=== PATIENT | female | born 1985 | race Caucasian/White ===

== ENCOUNTER 2025-07-07 11:26 | Emergency (ER) | payer OTHER, SELFPAY ==
--- NOTE | ~2025-07-07 | US_ITS ---
CLINICAL HISTORY: 20 wks preg, slip and fall, L abd pain Ultrasound OB. COMPARISON: None provided. Technique: Real time transabdominal sonographic imaging, including color-flow imaging, was performed by the hearing screen coordinator. Multiple labor union business representative static images were saved for review. FINDINGS: Estimated gestational age (EGA) by LMP: 20 weeks 4 days Estimated date of delivery (ANDREEA) by LMP: 11/20/2025 Biometrics were not performed. heart rate (FHR): 144 bpm Single live intrauterine gestation in transverse position. Anterior placenta. No evidence of placenta previa or abruption. Closed cervix with length of 3.7 cm. Amniotic fluid largest pocket: 5.9 cm, normal. Right ovary appears normal and measures 2.5 x 1.6 x 2.1 cm. Left ovary appears normal and measures 2.2 x 1.6 x 1.5 cm. IMPRESSION: 1. Single living intrauterine gestation estimated at 20 weeks 4 days by LMP. 2. Placenta is anterior. Cervix is closed. This document has been electronically signed by: Kenroy Torres MD on 07/07/2025 13:43:55
[2025-07-07 11:35] VITALS: BP 129/88; PULSE 79; RESP 18; TEMP 36.6; O2SAT 98; BMI 35.5
--- NOTE | 2025-07-07 11:35 | ED.FALL ---
HPI - Fall General Chief Complaint: Fall Stated Complaint: fall Time Seen by Provider: 07/07/25 12:54 Related Data Allergies Allergy/AdvReac Type Severity Reaction Status Date / Time No Known Allergies Allergy Verified 07/07/25 11:37 [facility] Social History Social History Smoked in Last 30 Days: No Use of substances other than those prescribed or required for medical reasons: No Advance Directives: Yes Advance Directives Information Provided: No Advance Directives on File: No Do you have a plan to hurt others: No Plan Patient : Yes Physical Exam Vital Signs: Vital Signs: Last Vital Signs Temp 97.9 F 07/07/25 13:15 Pulse 82 07/07/25 13:15 Resp 16 07/07/25 13:15 BP 121/77 07/07/25 13:15 Pulse Ox 99 07/07/25 13:15 O2 Del Method Room Air 07/07/25 13:15 BMI result Body Mass Index 35.5 Course Course Course Narrative: This is a Rapid Medical Examination (RME) performed by Rinku De Jesus PA-C in triage. Full HPI, ROS, assessment and treatment plan per primary provider in the Main ED. Hx: 39 yo F here s/p flip and fall AIR PUMPER. currently 20 wks , ANDREEA 11/20/24. reports slipping on ice, falling back onto her left back, braced herself with her L hand/wrist. having L neck discomfort and left sided abd pain. no vaginal bleeding. Plan: US Reevaluation(s) Reevaluation #1: This is a duplicate note. please see dr. franco's completed note regarding patient's visit on 07/07/25. Medical Decision Making Lab Data 07/07/25 11:45 07/07/25 11:45 Labs: Lab Results 07/07/25 Range/Units 11:45 WBC 10.6 (4.8-10.8) X10*3/uL RBC 4.50 (4.20-5.50) X10*6/uL Hgb 13.3 (12.0-16.0) g/dl Hct 39.3 (37.0-47.0) % MCV 87.3 (80.0-98.0) fL MCH 29.6 (27.0-33.0) pg MCHC 33.8 (31.0-35.0) g/dl RDW 12.9 (11.0-16.0) % Plt Count 203 (160-400) X10*3/uL MPV 11.3 (9.4-12.3) fL Immature Gran % (Auto) 0.6 H (0.0-0.4) % Neut % (Auto) 76.4 H (45-73) % Lymph % (Auto) 16.3 L (20-40) % Door % (Auto) 5.6 (2-11) % Eos % (Auto) 0.8 (0-4) % Baso % (Auto) 0.3 (0-2) % Lymph # (Auto) 1.7 (1.2-4.9) X10*3/uL Door # (Auto) 0.6 (0.1-1.2) X10*3/uL Eos # (Auto) 0.1 (0.0-0.4) X10*3/uL Baso # (Auto) 0.0 (0.0-0.2) X10*3/uL Abs Immat Gran (auto) 0.06 H (0.00-0.03) X10*3/uL Absolute Neuts (auto) 8.1 (2.0-8.3) x10*3/uL Absolute Nucleated RBC 0.000 (0.0-0.012) X10*3/uL Nucleated RBC % (auto) 0.0 (0.0-0.2) /100WBC Sodium 136 (135-145) mmol/L Potassium 3.6 (3.3-5.1) mmol/L Chloride 107 (96-108) mmol/L Carbon Dioxide 23 (22-29) mmol/L Anion Gap 10 L (12-20) BUN 8 L (9-16) mg/dL Creatinine 0.51 (0.5-1.4) mg/dL Estim Creat Clear Calc 154.0 Estimated GFR > 60 Random Glucose 88 (60-115) mg/dL Calcium 8.7 (8.4-10.2) mg/dL Total Bilirubin 0.2 (0.0-1.0) mg/dL AST 19 (5-31) U/L ALT 15 (0-31) U/L Alkaline Phosphatase 45 (39-117) U/L Total Protein 6.7 (6.5-8.0) g/dL Albumin 3.6 (3.5-5.0) g/dL Beta HCG, Quant 03834 mIU/mL Blood Type A Positive Discharge Plan Discharge Clinical Impression: Fall, Contusion of back, and infectious disease in second trimester Patient Disposition: Home, Self-Care Instructions: Fall Prevention (ED) Additional Instructions: Follow-up with your primary care physician and OBGYN, return to the emergency room if you have vaginal bleeding abdominal cramps abdominal pain any concern Stand Alone Forms: Work/School Release Interventions: ED Discharge Assessment Last Done: 07/07/25 13:15 Discharge Date/Time: 07/07/25 13:24 Print Language: [place]
[2025-07-07 11:51] LABS: Hematocrit 39.3 % (37.0-47.0); Hemoglobin 13.3 g/dl (12.0-16.0); Imm Gran Abs Auto 0.06 X10*3/uL (0.00-0.03); Imm Gran Pct Auto 0.6 % (0.0-0.4); Lymphocytes Absolute Auto 1.7 X10*3/uL (1.2-4.9); MANUAL DIFF FLAG NO; Mean Corpuscular HGB Conc 33.8 g/dl (31.0-35.0); Mean Corpuscular Hemoglobin 29.6 pg (27.0-33.0); Mean Corpuscular Volume 87.3 fL (80.0-98.0); NRBC Abs Auto 0.000 X10*3/uL (0.0-0.012); NRBC Pct Auto 0.0 /100WBC (0.0-0.2); Platelet Count 203 X10*3/uL (160-400); Red Blood Count 4.50 X10*6/uL (4.20-5.50); White Blood Count 10.6 X10*3/uL (4.8-10.8)
[2025-07-07 12:19] LABS: Alanine Aminotransferase 15 U/L (0-31); Albumin Level 3.6 g/dL (3.5-5.0); Alkaline Phosphatase 45 U/L (39-117); Anion Gap 10 (12-20); Aspartate Amino Transferase 19 U/L (5-31); Blood Urea Nitrogen 8 mg/dL (9-16); Calcium 8.7 mg/dL (8.4-10.2); Carbon Dioxide 23 mmol/L (22-29); Chloride 107 mmol/L (96-108); Creatinine Clr Calc Pharmacy 154.0; Estimated Glomerular Filt Rate > 60; Potassium 3.6 mmol/L (3.3-5.1); Sodium 136 mmol/L (135-145); Total Protein 6.7 g/dL (6.5-8.0)
[2025-07-07 13:01] VITALS: BP 121/77; PULSE 82; RESP 16; TEMP 36.6; O2SAT 99
--- NOTE | 2025-07-07 13:06 | ED_ITS ---
HPI - Fall General Chief Complaint: Fall Stated Complaint: fall Time Seen by Provider: 07/07/25 12:54 Source: patient Mode of arrival: ambulatory Limitations: no limitations History of Present Illness HPI Narrative: This is years old she is about 20 weeks gestation presented to the emergency department after a fall she slipped in the ice. She denies any abdominal pain any cramps any contraction in the vaginal bleeding. complaint: fall Onset (ago): hour(s) (2) Fall from: standing Place fall occurred: street Loss of consciousness: none Prolonged down time: no Severity: mild Related Data Allergies Allergy/AdvReac Type Severity Reaction Status Date / Time No Known Allergies Allergy Verified 07/07/25 11:37 Review of Systems 2 Constitutional: Constitutional: Reports no additional constitutional complaints Cardiovascular: Cardiovascular: Reports no additional cardiovascular complaints Integumentary/Breasts: Skin/Breast: Reports system reviewed and no additional complaints, except as docu PMFSH Past Medical History PMFSH Narrative: Denies any major medical Social History Social History Smoked in Last 30 Days: No Use of substances other than those prescribed or required for medical reasons: No Advance Directives: Yes Advance Directives Information Provided: No Advance Directives on File: No Do you have a plan to hurt others: No Plan Patient : Yes Physical Exam 2 Exam: Exam: On examination she looks well not toxic comfortable in the stretcher Vital Signs: Vital Signs: Last Vital Signs Temp 97.9 F 07/07/25 13:15 Pulse 82 07/07/25 13:15 Resp 16 07/07/25 13:15 BP 121/77 07/07/25 13:15 Pulse Ox 99 07/07/25 13:15 O2 Del Method Room Air 07/07/25 13:15 BMI result Body Mass Index 35.5 Vital signs were reviewed by me she is normotensive she is not tachycardic Const: General: cooperative Orientation/consciousness: patient oriented x3 HEENT: Head: Yes normal to inspection Ears: hearing grossly normal bilaterally General nose exam: Normal external nose present Face and sinus: Yes normal facial exam Mouth: Normal oral and palatal mucosa present Throat: Yes posterior oropharynx normal Neck: Neck: Yes normal visual inspection Resp: Effort & Inspection: normal respiratory effort Cardio: Jugular venous distension: no JVD Palpation: normal PMI Rate: r egular rate Rhythm: regular rhythm GI: Other: Abdomen examination she has a gravid the uterus but no tenderness no guarding and no rebound abdomen is soft Inspection: Yes normal to inspection Palpation (GI): Soft to palpation, not firm and nontender Skin: General skin exam: no rashes or lesions noted, elasticity normal and turgor normal Rashes: no rashes Neuro: General: patient oriented x3 Medical Decision Making Medical Decision Making [facility] Narrative: 39 years old ,20 weeks gestation presented after a fall she has no abdominal pain, no vaginal bleeding no cramps no contraction an ultrasound was done official ultrasound shows a live IUP. At this point I do not think we need to do a nonstress test on this pt she is completely asymptomatic. Think she can be safely discharged home. She is very comfortable with the plan of care at this time we will discharge him home she will follow-up with her OBGYN in [facility], she is A positive Differential Diagnosis Differential Diagnoses: The differential diagnosis associated with the presentation includes Miscarriage/threatened ab Admission/Observation Consideration of admission/observation: Escalation of care including admission/observation considered I consider monitoring with a nonstress test but given the lack of symptoms and normal ultrasound I do not think it is necessary Lab Data [facility] Lab Attestation statement: I reviewed the patient's lab results. 07/07/25 11:45 07/07/25 11:45 Labs: Lab Results 07/07/25 Range/Units 11:45 WBC 10.6 (4.8-10.8) X10*3/uL RBC 4.50 (4.20-5.50) X10*6/uL Hgb 13.3 (12.0-16.0) g/dl Hct 39.3 (37.0-47.0) % MCV 87.3 (80.0-98.0) fL MCH 29.6 (27.0-33.0) pg MCHC 33.8 (31.0-35.0) g/dl RDW 12.9 (11.0-16.0) % Plt Count 203 (160-400) X10*3/uL MPV 11.3 (9.4-12.3) fL Immature Gran % (Auto) 0.6 H (0.0-0.4) % Neut % (Auto) 76.4 H (45-73) % Lymph % (Auto) 16.3 L (20-40) % Heard % (Auto) 5.6 (2-11) % Eos % (Auto) 0.8 (0-4) % Baso % (Auto) 0.3 (0-2) % Lymph # (Auto) 1.7 (1.2-4.9) X10*3/uL Heard # (Auto) 0.6 (0.1-1.2) X10*3/uL Eos # (Auto) 0.1 (0.0-0.4) X10*3/uL Baso # (Auto) 0.0 (0.0-0.2) X10*3/uL Abs Immat Gran (auto) 0.06 H (0.00-0.03) X10*3/uL Absolute Neuts (auto) 8.1 (2.0-8.3) x10*3/uL Absolute Nucleated RBC 0.000 (0.0-0.012) X10*3/uL Nucleated RBC % (auto) 0.0 (0.0-0.2) /100WBC Sodium 136 (135-145) mmol/L Potassium 3.6 (3.3-5.1) mmol/L Chloride 107 (96-108) mmol/L Carbon Dioxide 23 (22-29) mmol/L Anion Gap 10 L (12-20) BUN 8 L (9-16) mg/dL Creatinine 0.51 (0.5-1.4) mg/dL Estim Creat Clear Calc 154.0 Estimated GFR > 60 Random Glucose 88 (60-115) mg/dL Calcium 8.7 (8.4-10.2) mg/dL Total Bilirubin 0.2 (0.0-1.0) mg/dL AST 19 (5-31) U/L ALT 15 (0-31) U/L Alkaline Phosphatase 45 (39-117) U/L Total Protein 6.7 (6.5-8.0) g/dL Albumin 3.6 (3.5-5.0) g/dL Beta HCG, Quant 08446 mIU/mL Blood Type A Positive Independent Interpretation I performed an independent interpretation of an: Ultrasound Interpretation: I personally reviewed interpreted the ultrasound as a live IUP Radiology Impression Discussion of test interpretation with radiology: I have reviewed the radiologist's reading. Radiologist Impression: inal sonographic imaging, including color-flow imaging, was performed by the weld technician. Multiple credit and collections representative static images were saved for review. FINDINGS: Estimated gestational age (EGA) by LMP: 20 weeks 4 days Estimated date of delivery (ANDREEA) by LMP: 11/20/2025 Biometrics were not performed. heart rate (FHR): 144 bpm Single live intrauterine gestation in transverse position. Anterior placenta. No evidence of placenta previa or abruption. Closed cervix with length of 3.7 cm. Amniotic fluid largest pocket: 5.9 cm, normal. Right ovary appears normal and measures 2.5 x 1.6 x 2.1 cm. Left ovary appears normal and measures 2.2 x 1.6 x 1.5 cm. IMPRESSION: 1. Single living intrauterine gestation estimated at 20 weeks 4 days by LMP. 2. Placenta is anterior. Cervix is closed. This document has been electronically signed by: Kenroy Torres MD on 07/07/2025 13:43:55 Dictated By: Kenroy Torres MD Signed By: <Electronically signed by Kenroy Torres MD in OV> 07/07/25 1345 DD/ 1343 TD/TT: 07/07/25 1343 Thai Masseur: Discharge Plan Discharge Clinical Impression: and infectious disease in second trimester Fall Qualifiers: Encounter type: initial encounter Qualified Code(s): W19.XXXA - Unspecified fall, initial encounter Contusion of back Qualifiers: Encounter type: initial encounter Laterality: left Qualified Code(s): S20.222A - Contusion of left back wall of thorax, initial encounter Patient Disposition: Home, Self-Care Instructions: Fall Prevention (ED) Additional Instructions: Follow-up with your primary care physician and OBGYN, return to the emergency room if you have vaginal bleeding abdominal cramps abdominal pain any concern Stand Alone Forms: Work/School Release Interventions: ED Discharge Assessment Last Done: 07/07/25 13:15 Discharge Date/Time: 07/07/25 13:24 Print Language: Welsh
--- NOTE | 2025-07-07 13:08 | PC.NURSE ---
Pt awake and alert. Presents to ED for concerns of slip and fall on ice to left buttocks/wrist. Pt is 20 weeks 4 days . . Denies vaginal bleeding/cramping. Blood type A+. Followed by MAAME ken. Anterior placenta. Full ROM, ambulating with steady gait. Denies hitting head or LOC. US showed good movement/HR. Plan for DC home per Dr. Isabel.
[2025-07-07 13:15] VITALS: BP 121/77; PULSE 82; RESP 16; TEMP 36.6; O2SAT 99
--- OUTSIDE RECORDS SUMMARY | 2025-07-07 13:17 | XMS_ITS | Clinical Summary ---
Author Organization [facility] lin Address [address] [place] [address] Care Team Providers Care Observer Electrical Prospecting Name Role Phone Unavailable Primary Care Provider Unavailabl e Allergies No known active allergies Medications labetaloL (NORMODYNE) 200 MG tablet TAKE 1 TABLET BY MOUTH TWICE DAILY 09/27/2020 Active omeprazole (PriLOSEC) 40 MG capsule TAKE 1 CAPSULE BY MOUTH EVERY DAY 10/17/2020 Active Social History Tobacco Use Types Packs/Day Years Used Date Smoking Tobacco: Never Assessed Comments Unknown Sex and Gender Information Value Date Recorded Sex Assigned at Not on file Legal Sex Female 3:28 PM EDT Gender Identity Not on file Sexual Orientation Not on file Last Filed Vital Signs Vital Sign Reading Time Taken Comments Blood Pressure - - Pulse 80 10/28/2020 10:02 AM EDT Temperature 36.7 C (98 F) 10/28/2020 10:02 AM EDT Respiratory Rate - - Oxygen Saturation 98% 10/28/2020 10:02 AM EDT Inhaled Oxygen Concentration - - Weight - - Height - - Body Mass Index - - Plan of Treatment Not on file Medical Devices Not on file Insurance
--- OUTSIDE RECORDS SUMMARY | 2025-07-07 13:17 | XMS_ITS | Encounter Summary ---
Author Organization [facility] Address [address] [place] [address] Phone Care Team Providers Care Social Science Teacher Name Role Phone Sloane Gold MD Primary Care Provider + [phone] Encounter Details Date Type Department Care Team (Late st Contact Info) Description 02/16/2018 Ancillary Orders [facility] - Maternal Medicine [address] [place] [phone] Fernando Darnell MD [address] [place] [phone] Chronic hypertension complicating or reason for care during , third trimester Social History Tobacco Use Types Packs/Day Years Used Date Smoking Tobacco: Never Assessed Comments Yes Sex and Gender Information Value Date Recorded Sex Assigned at Not on file Legal Sex Female 9:16 AM EDT Gender Identity Not on file Sexual Orientation Not on file documented as of this encounter Plan of Treatment Not on file documented as of this encounter Visit Diagnoses Diagnosis Chronic hypertension complicating or reason for care during , third trimester documented in this encounter Care Teams Social Science Teacher Relationship Specialty Start Date End Date Sloane Gold MD [address] [address] PCP - General 01/28/17 documented as of this encounter
--- OUTSIDE RECORDS SUMMARY | 2025-07-07 13:17 | XMS_ITS | Encounter Summary ---
Author Organization [facility] Address [address] [place] [address] Phone Care Team Providers Care Military Personnel Specialist Name Role Phone Sloane Gold MD Primary Care Provider + [phone] Encounter Details Date Type Department Care Team (Late st Contact Info) Description 12/22/2017 Ancillary Orders [facility] - Testing [address] [place] [phone] eTrence Garibay MD [address] [place] [address] Chronic hypertension affecting Social History Tobacco Use Types Packs/Day Years Used Date Smoking Tobacco: Never Assessed Comments Yes Sex and Gender Information Value Date Recorded Sex Assigned at Not on file Legal Sex Female 9:16 AM EDT Gender Identity Not on file Sexual Orientation Not on file documented as of this encounter Plan of Treatment Not on file documented as of this encounter Results * MFM ultrasound (01/19/2018 11:11 AM EDT) Anatomical Region Laterality Modality Body Ultrasound 01/19/2018 10:5 5 AM EDT us Terence Garibay MD IMG OB US PROCEDURES F inal Result documented in this encounter Visit Diagnoses Diagnosis Chronic hypertension affecting documented in this encounter Care Teams Military Personnel Specialist Relationship Specialty Start Date End Date Sloane Gold MD [address] [address] PCP - General 01/28/17 documented as of this encounter
--- OUTSIDE RECORDS SUMMARY | 2025-07-07 13:17 | XMS_ITS | Encounter Summary ---
Author Organization [facility] Address [address] [place] [address] Phone Care Team Providers Care Elementary Assistant Teacher Name Role Phone Sloane Gold MD Primary Care Provider + [phone] Encounter Details Date Type Department Care Team (Late st Contact Info) Description 09/29/2017 Ancillary Orders [facility] - Maternal Medicine [address] [place] [phone] Fernando Darnell MD [address] [place] [phone] Encounter for (NT) nuchal translucency scan Social History Tobacco Use Types Packs/Day Years [...] of this encounter Results * MFM ultrasound (11/10/2017 1:20 PM EDT) Anatomical Region Laterality Modality Body Ultrasound 11/10/2017 1:07 PM EDT us Fernando Darnell MD IMG OB US PROCEDURES Final Resu lt documented in this encounter Visit Diagnoses Diagnosis Encounter for (NT) nuchal translucency scan Other specified screening documented in this encounter Care Teams Elementary Assistant Teacher Relationship Specialty Start Date End Date Sloane Gold MD 56 [facility] [address] [place] [address] PCP - General 01/28/17 documented as of this encounter
--- OUTSIDE RECORDS SUMMARY | 2025-07-07 13:17 | XMS_ITS | Encounter Summary ---
Author Organization [facility] Address [address] [facility] [address] [place] [address] Phone Care Team Providers Care Veterinary Technologist Name Role Phone Sloane Gold MD Primary Care Provider [phone] Sloane Gold MD Unavailable [phone] Mauricio Veloz MD Unavailable [phone] Sloane Gold MD Unavailable [phone] Encounter Details Date Type Department Care Team (Late st Contact Info) Description 06/10/2023 Procedure Pass [facility] [address] [facility] 1st [place] [address] Social History Tobacco Use Types Packs/Day Years Used Date Smoking Tobacco: Never Smokeless Tobacco: Never Alcohol Use Standard Drinks/Week Comments Yes 2 (1 standard drink = 0.6 oz pur e alcohol) Education Answer Date Recorded Are you interested in more education? Not on viktor e 11/27/2022 Are you concerned about learning? Not on file 11/27/2022 No 11/27/2022 No 11/27/2022 Digital Access Answer Date Recorded No 12/28/2022 No 12/28/2022 Reliable internet access at home? Not on file 12/28/2022 Device with a working camera? Not on file Comments No Sex and Gender Information Value Date Recorded Sex Assigned at Not on file Legal Sex Female 1:29 PM EST Gender Identity Not on file Sexual Orientation Not on file Occupation Industry Job Start Date Job End Date RN Not on file Not on file Not on file documented as of this encounter Plan of Treatment Upcoming Encounters Date Type Department Care Team (Late st Contact Info) Description 05/16/2026 10:15 AM EDT [facility] [address] [phone] Sloane Gold MD [address] [address] [email or web address] documented as of this encounter Visit Diagnoses Not on filedocumented in this encounter Additional Health Concerns Assessment Noted Time PHQ-2 Depression Total Score: 0 04/12/20 23 10:43 AM EDT documented as of this encounter Care Teams Veterinary Technologist Relationship Specialty Start Date End Date Sloane Gold MD [address] [address] [email or web address] PCP - General 01/30/14 Sloane Gold MD [address] [place] [id number] [email or web address] 01/30/14 04/12/24 Mauricio Veloz MD [address] [place] [phone] [email or web address] Historical LMR Provider 02/17/18 Sloane Gold MD [address] [place] [id number] [email or web address] Historical LMR Provider 02/17/18 04/12/24 documented as of this encounter Additional Source Comments The information contained in this document represents components of the legal health record. It is not the complete legal health record.[facility]
--- OUTSIDE RECORDS SUMMARY | 2025-07-07 13:17 | XMS_ITS | Clinical Summary ---
Author Organization [facility] Address [address] [place] [address] [place] [address] Phone Care Team Providers Care Heading Pinner Name Role Phone Sloane Gold MD Primary Care Provider [phone] Mauricio Veloz MD Unavailable [phone] Allergies No known active allergies Medications fluticasone propionate (FLONASE) 50 mcg/actuation nasal spray 1 spray by Nasal route daily. Active loratadine (CLARITIN) 10 mg tablet Take 10 mg by mouth daily. prn Active azelastine (ASTEPRO) 205.5 mcg (0.15 %) [place] 205.5 mcg by Each Nare route 2 (two) times a day. prn Active acetaminophen (TYLENOL EXTRA STRENGTH) 500 MG tablet Active ascorbic acid, vitamin C, (VITAMIN C) 1000 MG tablet Active cholecalciferol (D3-2000) 2,000 unit capsule 3 x a week Active psueffladmkr-iws-n chrystal-FA-vit K (MULTI FOR HER) 18 mg iron-600 mcg-40 mcg Cap Active ondansetron (ZOFRAN-ODT) 4 MG disintegrating tablet prn 3 Active zinc gluconate 50 mg tablet Active docusate sodium (COLACE) 100 MG capsule Take 100 mg by mouth nightly at bedtime. 0 Active SUMAtriptan (IMITREX) 50 MG tablet Take 1 tablet (50 mg total) by mouth once as needed for migraine. Can repeat dose in 2 hours if needed. Do not exceed 2 doses in a 24 hour period. 9 tablet 1 3 Active neomycin-polymyxin B-dexAMETHasone (MAXITROL) 3.5mg/mL-10,000 unit/mL-0.1 % ophthalmic suspension prn 4 Active b complex vitamins capsuleIndications :Migraine without status migrainosus, not intractable, unspecified migraine type Take 1 capsule by mouth daily. 4 Active magnesium oxide (MAG-OX) 400 mg (241.3 mg elemental) tabletIndications: Migraine without status migrainosus, not intractable, unspecified migraine type Take 1 tablet (400 mg total) by mouth daily. 4 Active NIFEdipine (PROCARDIA XL) 60 MG 24 hr tablet TAKE 1 TABLET(60 MG) BY MOUTH DAILY 30 tablet 12 4 Active albuterol 90 mcg/actuation inhaler Take 20 minutes prior to exercise and q 6 hours prn 25.5 g 1 5 Active hydrOXYzine (ATARAX) 25 MG tablet Tid prn anxiety 30 tablet 1 5 Active escitalopram oxalate (LEXAPRO) 20 MG tablet TAKE 1 TABLET(20 MG) BY MOUTH DAILY 90 tablet 3 5 Active triamcinolone acetonide 0.1 % cream APPLY TO AFFECTED AREAS 2 TIMES A DAY FOR NO MORE THEN 2 WEEKS 5 Active omeprazole (PRILOSEC) 40 MG capsule Take 1 capsule (40 mg total) by mouth daily. 90 capsule 3 5 Active omeprazole (PRILOSEC) 40 MG capsule Take 1 capsule (40 mg total) by mouth daily. 90 capsule 3 4 025 Discontin ued(Reord er) Active Problems Problem Noted Date Diagnosed Date Routine adult health maintenance 04/13/2024 Overview (04/13/2024): Pap 2022 - per [employer] [facility] Mammogram - Due at age 41 HIV screen - Complete Hepatitis C screen - Due Tdap 2017, Td 2022 - Td due 2031 Assessment & Plan (04/13/2024 1:58 PM EDT): Pap 2022 - per [facility] Mammogram - Due at age 41 HIV screen - Complete Hepatitis C screen - Due Tdap 2017, Td 2021 - Td due 2031 Mood changes 04/13/2024 Assessment & Plan (04/19/2025 12:06 PM EDT): Stable on celexa Assessment & Plan (04/13/2024 1:57 PM EDT): Reports some mood changes in the last few months. Check thyroid. Vitamin D deficiency 04/13/2024 Assessment & Plan (04/13/2024 1:58 PM EDT): Has been low in the past. Plan to repeat. Chronic constipation 07/19/2023 Hypercholesteremia 05/24/2018 Migraine without status migrainosus, not intract able 05/24/2018 Assessment & Plan (04/13/2024 1:57 PM EDT): Reports history of migraines, seemed to become more recurrent at the end of last year when she was under a lot of stress. Has been better this past month. Advised journal to track frequency, quality, and other things that may link to a pattern or trigger. Trial of magnesium and/or B complex. Consider tracking ovulation as well. Recommend follow up with the eye doctor for the dry eye feeling. Return in 6-8 weeks for follow up. Multiple nevi 05/24/2018 Assessment & Plan (04/19/2025 12:05 PM EDT): Sees dermatology Primary hypertension 02/24/2018 Overview (12/03/2022): Hypertension with both pregnancies and at baseline Assessment & Plan (04/19/2025 11:52 AM EDT): BP in goal at this time, will need monitoring through out her Assessment & Plan (04/13/2024 1:52 PM EDT): Remains on Metoprolol succinate 50mg daily as well as Nifedipine 60mg daily. Previously saw cardiology. Will complete labs and EKG today. Follow up in 6 months. Assessment & Plan (08/26/2021 3:58 PM EST): BP in goal today, will have her return for fasting labs and EKG when she can get a linter operator Right bundle branch block 02/12/2018 GERD (gastroesophageal reflux disease) 8 Assessment & Plan (04/19/2025 12:06 PM EDT): She may continue her Prilosec if needed Assessment & Plan (04/13/2024 1:52 PM EDT): Gastritis on endoscopy. Now on PPI. Estimated Date of Delivery Comme nts Yes 11/20/2025 Resolved Problems Problem Noted Date Diagnosed Date Resolved Date Abdominal pain 04/12/2023 04/13/2024 Assessment & Plan (04/12/2023 12:06 PM EDT): Abdominal pain persists but its more mild, she also continues to have some nausea but no vomiting. Uncertain what is causing symptoms. Workup at the hospital initially showed WBC elevations but that trended back down. Imaging unremarkable with the exception of left-sided ovarian cyst. Perhaps some of her palpable discomfort is secondary to this. [facility] didn't feel this required further workup. It doesn't explain the bloating/distention. We will check labs today but recommend follow up with GI. She may need endoscopy. To ER with return of severe pain. Elevated blood pressure read ing without diagnosis of hypertension 05/24/2018 08/22/2020 Enchondroma of femur 05/24/2018 022 Human papilloma virus infection 05/24/2018 07/13/2019 Lumbar radiculopathy 05/24/2018 021 Oligomenorrhea 05/24/2018 08/22/2020 Palpitations 05/24/2018 08/22/2020 Panic disorder without agoraphobia 05/24/2018 07/13/2019 Supervision of normal 02/24/2018 08/26/2021 Pre-existing hypertension du ring in second trimester 02/12/2018 04/13/2024 Chronic hypertension affecting 11/10/2017 08/22/2020 Overview (05/24/2018): Overview: Metaprolo 50mg Hx of shoulder surgery 11/10/201708/22 Trichilemmal cyst 11/16/2012 08/22/2020 Overview (09/21/2014): Trichilemmal cyst Encounters Date Type Department Care Team Description 07/02/[address] [facility] [address] [address] Sloane Gold MD Medication Refill 04/19/2025 11:20 AM EDT Office Visit [facility] [address] [address] Sandhya Vazquez, [employer], MSN Routine adult health maintenance (Primary Dx); Primary hypertension; Multiple nevi; Gastroesophageal reflux disease without esophagitis; Mood changes from Last 3 Months Immunizations Immunization Administration Dates Next Due COVID-19 (Pre-05/24) Pfizer Vaccine, mRNA, PF 07/06/2021,01/18/2021,12/28/2020 DTaP 03/06/1997, 1,06/21/1989,08/16,05/16/1987 [id number] 07/17/2009 HPV,quadrivalent 07/10/2009,03/04/2009, 9 Hepatitis A, Adult 12/12/2008,06/13/2008 Hepatitis A, Unspecified 12/12/2008,06/13/2008 Hepatitis B Adult 06/06/1998,01/03/1998,12/07/18 98 INFLUENZA, SPLIT VIRUS, TRIVALENT PF 04/21/2014, 05/19/2013 INFLUENZA, SPLIT VIRUS, TRIV ALENT W/ PRESERVATIVE IM 05/19/2021,04/25/2019,05/10/2012,04/27 IPV 06/08/2008 Influenza Quadrivalent MDCK Preservative Free IM 05/13/2022,05/16/2021 Influenza Quadrivalent Prese rvative Free IM 05/10/2023,05/19/2021,06/21/2020,05/22,05/01/2019,05/14/2016 Influenza Quadrivalent w/ Pr eservative IM 07/12/2018 Influenza Split (Incl. Purif ied Surface Antigen) 04/13/2010,04/17/2009,06/08/2008 Influenza, Unspecified Formulation 07/12,04/24/2017,05/15/2016,05/08 MMR 12/14/1994 Meningococcal MCV4P 06/08/2008 Meningococcal MPSV4 11/20/2005 PPD Test 12/12/2010, 9,06/11/2008,12/05 Polio - OPV 11/16/1990, 0,06/11/1987,01/31 Td (adult),2 Lf Tetanus Toxo id, PF, Adsorbed 01/06/2005,12/10/1998 Td, unspecified formulation 11/01/2021,0 04/25/2019,05/02/2017,03/08,01/27/2015,12/17/2012,01/29/2012 ,12/12/2010,03/04/2009,06/11/2008 Tdap 02/24/2018,06/08/2008 Family History Medical History Relation Comments No Known Problems Brother Alcohol abuse Father Colon polyps Father Depression Father Hyperlipidemia Father Hypertension Father Diabetes Maternal Grandfather Colon polyps Mother Depression Mother Hypertension Mother Optic neuritis Mother Cancer Paternal Grandmother Colon cancer Paternal Grandmother Atrial fibrillation Unspecified Relation Status Comments Brother Alive Father Maternal Grandfather Mother Alive Paternal Grandfather Paternal Grandmother Unspecified Social History Tobacco Use Types Packs/Day Years Used Date Smoking Tobacco: Never Smokeless Tobacco: Never Tobacco Cessation:Counseling Given: Not Answered Alcohol Use Standard Drinks/Week Comments Not Currently 1 (1 standard drink = 0.6 oz pur e alcohol) Education Answer Date Recorded Are you interested in more education? Not on viktor e 11/27/2022 Are you concerned about learning? Not on file 11/27/2022 No 11/27/2022 No 11/27/2022 Digital Access Answer Date Recorded No 12/28/2022 No 12/28/2022 Reliable internet access at home? Not on file 12/28/2022 Device with a working camera? Not on file Intimate Partner Violence Answer Date R ecorded Denied Basic Needs Not on file 04/19/2025 In the past 12 months have y ou been in a relationship with a person who hurts, threatens, or tries to control you? No 04/19/2025 Worried food would run out Not on file 04/19 In the past 12 months have y ou been in a relationship with a person who hurts, threatens, or tries to control you? 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 Not on file Not on viktor e Last Filed Vital Signs Vital Sign Reading Time Taken Comments Blood Pressure 108/72 04/19/2025 11:19 AM EDT Pulse 78 04/19/2025 11:19 AM EDT Temperature 36.5 C (97.7 F) 06/10/2023 11:00 AM EST Respiratory Rate 16 06/10/2023 12:13 PM EST Oxygen Saturation 99% 04/19/2025 11:19 AM EDT Inhaled Oxygen Concentration - - Weight 83 kg (183 lb) 04/19/2025 11:19 AM EDT Height 160 cm (5' 3 ) 04/19/2025 11:19 AM EDT Body Mass Index 32.42 04/19/2025 11:19 AM EDT Plan of Treatment Upcoming Encounters Date Type Department Care Team (Late st Contact Info) Description 05/16/2026 10:15 AM EDT [facility] [address] [address] Sloane Gold MD [address] [address] [email or web address] Health Maintenance Due Date Last Done Comments PAP SMEAR 10/14/2020 10/14/2017 COLOGUARD 07/12/2023 FIT TEST 07/12/2023 FOBT 07/12/2023 SIGMOIDOSCOPY 07/12/2023 VIRTUAL COLONOSCOPY 07/12/2023 INFLUENZA VACCINE (#1) 2025 , 05/13/2022, 05/19/2021, Additional history exists COVID-19 VACCINE ( season) 2025 07/06/2021, 01/18/2021, 12/28/2020 BLOOD PRESSURE 10/17/2025 04/19/2025 DEPRESSION SCREENING 04/19/2026 04/19/2025 SCREENING FOR DIABETES 04/13/2027 04/13/2024 Adult Td,Tdap Booster 11/02/2031 11/01/2021 , 04/25/2019, 02/24/2018, Additional history exists COLONOSCOPY 12/03/2031 06/10/2023 COLORECTAL CANCER SCREENING 12/03/2031 MENINGOCOCCAL VACCINES (ACWY) Aged Out 06/08/2008, 11/20/2005 No longer eligibl e based on patient's age to complete this topic HEPATITIS A VACCINES Aged Out 12/12/2008, 12/12/2008, 06/13/2008, Additional history exists No longer eligible based on patient's age to complete this topic HIV ONE-TIME SCREENING (18-65 YEARS) Completed 09/28/2017 HEPATITIS C SCREENING Completed 04/13/2024 SMOKING STATUS SCREENING (Once After 26 Yrs) Completed 04/19/2025 HIB VACCINES Aged Out No longer eligi ble based on patient's age to complete this topic MENINGOCOCCAL VACCINES (B) Aged Out N o longer eligible based on patient's age to complete this topic RSV VACCINE (No Doses Required) Completed Medical Devices Not on file Procedures Procedure Name Priority Date/Time Associated Diagnosis Comments HEPATITIS C ANTIBODY, QUALITATIVE Routine 04/13/2024 1:55 PM EDT Need for hepatitis C screening test [id number] RFACED Routine 06/10/2023 1:04 PM EST THINPREP PAP AND HR HPV DNA Routine 10/14/2017 1:00 PM EDT Encounter for supervision of normal in first trimester from Last 3 Months or Most Recently Relevant to Health Maintenance Results * Hepatitis C antibody, qualitative (04/13/2024 1:55 PM EDT) HCV Nonreactive Nonreactive [facility] Comment: Blood 04/13/2024 1:55 PM EDT 04/13/2024 2:02 PM EDT Janelle Alatorre [employer] SE[employer] LAB BLOOD BKR ORDERA BLES Final Result [facility] [place] [address] [place] [address], [facility] [phone] * Colonoscopy - Non-Interfaced (06/10/2023 1:04 PM EST) Kev Barrera MD GI PROCEDURE ORDERABLES Final Re sult * Thinprep Pap And HR HPV DNA (10/14/2017 1:00 PM EDT) CLINICAL INFORMATION: SEE NOTE [email or web address] Comment:None given LMP: SEE NOTE [facility] Comment:NONE GIVEN PREV. PAP: SEE NOTE [facility] [place] Comment:NONE GIVEN PREV. BX: SEE NOTE [facility] Comment:NONE GIVEN SOURCE: SEE NOTE [facility] [place] Comment:None given STATEMENT OF ADEQUACY: SEE NOTE [email or web address] Comment: Satisfactory for evaluation. Endocervical/transformation zone component absent. Age and/or menstrual status not provided Interpretation/RES ULT: SEE NOTE [facility] Comment:Negative for intraep ithelial lesion or malignancy. EMPLOYEE COMMUNICATIONS INTERN: SEE NOTE [email or web address] Comment: BLC,CT(ASCP) CT screening location: [address] [address] Comment SEE NOTE [facility] Comment: EXPLANATORY NOTE: The Pap is a screening test for cervical cancer. It is not a diagnostic test and is subject to false negative and false positive results. It is most reliable when a satisfactory sample, regularly obtained, is submitted with relevant clinical findings and history, and when the Pap result is evaluated along with historic and current clinical information. HPV RNA (E6/E7 ONCOPROTEINS) Not Detected Not Detected [email or web address] Comment: This test was performed using the APTIMA HPV Assay ([employer] This assay detects E6/E7 viral messenger RNA (mRNA) from 14 high-risk HPV types (16,18,31,33,35,39,45,51,52,56,58,59,66,68). 10/14/2017 1:00 PM EDT 10/14/2017 1:00 PM EDT Narrative Resulting Agency Comment [email or web address][facility],[address] [place] [address],[address],,[place],[address],,ALEXUS GUNDERSON MD Rossy Hayes NP LAB CYTOLOGY ORDERABLES Fin al Result [facility] [address] [place] [id number], [facility] from Last 3 Months or Most Recently Relevant to Health Maintenance Insurance [facility] [id number] [place] [address] [facility] Address: [address] [phone] [facility] Address: [address] [phone] [facility] Care Teams Heading Pinner Relationship Specialty Start Date End Date Sloane Gold MD [address] [place] [phone] [email or web address] PCP - General 01/30/14 Mauricio Veloz MD [address] [place] [phone] [email or web address] Historical LMR Provider 02/17/18 Additional Source Comments The information contained in this document represents components of the legal health record. It is not the complete legal health record.[facility]
--- OUTSIDE RECORDS SUMMARY | 2025-07-07 13:17 | XMS_ITS | Clinical Summary ---
Author Organization [facility] Address [address] [place] [address] Phone Care Team Providers Care Economics Lecturer Name Role Phone Sloane Gold MD Primary Care Provider [phone] Allergies No known active allergies Active Problems Problem Noted Date Diagnosed Date Medication exposure during first trimester of pr egnancy 11/15/2017 Chronic hypertension affecting 018 Overview (11/10/2017): Metaprolo 50mg Hx of shoulder surgery 11/10/2017 Resolved Problems Problem Noted Date Diagnosed Date Resolved Date Nuchal translucency of fetus on ultrasound 11/15/2017 02/16/2018 Encounters Date Type Department Care Team Description 05/29/2025 11:40 AM EDT Office Visit [facility] [place] [address] [place] [address] Patrick Raphael PA-C Acute non-recurrent frontal sinusitis (Primary Dx) from Last 3 Months Social History Tobacco Use Types Packs/Day Years Used Date Smoking Tobacco: Never Assessed Comments No Sex and Gender Information Value Date Recorded Sex Assigned at Not on file Legal Sex Female 9:16 AM EDT Gender Identity Not on file Sexual Orientation Not on file Last Filed Vital Signs Vital Sign Reading Time Taken Comments Blood Pressure 118/79 05/29/2025 11:55 AM EDT Pulse 88 05/29/2025 11:55 AM EDT Temperature 36.7 C (98 F) 05/29/2025 11:55 AM EDT Respiratory Rate 16 05/29/2025 11:55 AM EDT Oxygen Saturation 98% 05/29/2025 11:55 AM EDT Inhaled Oxygen Concentration - - Weight 74.8 kg (165 lb) 05/29/2025 11:55 AM EDT Height 162.6 cm (5' 4 ) 05/29/2025 11:55 AM EDT Body Mass Index 28.32 05/29/2025 11:55 AM EDT Plan of Treatment Health Maintenance Due Date Last Done Comments [facility] Topic HIV Screening 1986 [facility] Topic Lipid Profile 2002 [facility] Topic Tdap Vaccine (1 - Tdap) 2005 [facility] Topic Cervical Cancer Screening 2016 [facility] Topic Shingrix (1 of 2) 2036 [facility] Topic HPV Vaccines Completed 2008, 03/04/2009, 12/14/2008 [facility] Topic Hepatitis C Screening Completed 04/13/2024 [facility] Topic Influenza (Flu) Seasonal Completed 05/11/2025, 05/19/2021, 04/25/2019, Additional history exists [facility] AMB RSV (under 20 months) Aged Out No longer eligible based on patient's age to complete this topic [facility] Topic HIB Vaccines Aged Out No longer eligible based on patient's age to complete this topic Procedures Procedure Name Priority Date/Time Associated Diagnosis Comments POCT COVID Routine 05/29/2025 12:16 PM EDT Acute non-recurrent frontal sinusitis POCT RAPID INFLUENZA Routine 05/29/2025 12:15 PM EDT Acute non-recurrent frontal sinusitis from Last 3 Months Results * POCT COVID (05/29/2025 12:16 PM EDT) POCT COVID Negative Negative Swab (Nares) 05/29/2025 12:1 6 PM EDT Patrick Raphael PA-C POINT OF CARE TEST ORDERABLE S Final Result * POCT Rapid Influenza (05/29/2025 12:15 PM EDT) Pathologist [facility] POCT Influenza A Negative Negative POCT Influenza B Negative Negative Swab (Nares) 05/29/2025 12:1 5 PM EDT Patrick Raphael PA-C POINT OF CARE TEST ORDERABLE S Final Result from Last 3 Months Insurance [employer] Care Teams Economics Lecturer Relationship Specialty Start Date End Date Sloane Gold MD [address] [address] PCP - General 01/28/17
--- OUTSIDE RECORDS SUMMARY | 2025-07-07 13:17 | XMS_ITS | Encounter Summary ---
Author Organization [facility] Address [address] [place] [address] Phone Care Team Providers Care Car Rental Service Attendant Name Role Phone Sloane Gold MD Primary Care Provider [phone] Mauricio Veloz MD Unavailable [phone] Reason for Visit * Reason Onset Date Comments Medication Refill 07/02/2025 Encounter Details Date Type Department Care Team (Late st Contact Info) Description 07/02/2025 Refill [facility] [address] [address] Sloane Gold MD [address] [address] [email or web address] Medication Refill Social History Tobacco Use Types Packs/Day Years Used Date Smoking Tobacco: Never Smokeless Tobacco: Never Alcohol Use Standard Drinks/Week Comments Not Currently [...] 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 file Not on viktor e documented as of this encounter Progress Notes * Jenny Hall MA - 07/02/2025 3:32 PM EST Rx Care Gap Status - Instructions for Clinical Staff (prescriber discretion applies): > Mismatch review guide > N/a - No action needed Visit Info Last visit: 04/19/2025 Sandhya Vazquez CNP, MSN - Internal Medicine [facility] > Requested f/u: Not specified Upcoming visit: 05/16/2026 Sloane Gold MD - Internal Medicine [facility] ACTIONS TAKEN BY Jenny Hall MA Gastrointestinal Rx Protocol (H2 blockers, PPIs, stool softeners, laxatives) - omeprazole Criteria met; renew for up to 12 months. Visit in the past 24 months: Yes documented in this encounter Plan of Treatment Upcoming Encounters Date Type Department Care Team (Late st Contact Info) Description 05/16/2026 10:15 AM EDT Office Visit [facility] 56 [place] [address] [address] Sloane Gold MD [address] [address] [email or web address] documented as of this encounter Visit Diagnoses Not on filedocumented in this encounter Additional Health Concerns Assessment Noted Time PHQ-2 Depression Total Score: 0 04/19/20 25 11:29 AM EDT documented as of this encounter Care Teams Car Rental Service Attendant Relationship Specialty Start Date End Date Sloane Gold MD [address] [address] [email or web address] PCP - General 01/30/14 Mauricio Veloz MD [address] [place] [phone] [email or web address] Historical LMR Provider 02/17/18 documented as of this encounter Additional Source Comments The information contained in this document represents components of the legal health record. It is not the complete legal health record.[facility]
--- OUTSIDE RECORDS SUMMARY | 2025-07-07 13:17 | XMS_ITS | Clinical Summary ---
Author Organization [facility] Address [address] [place] [address] Care Team Providers Care Motorcycle Service Technician Name Role Phone Unavailable Primary Care Provider Unavailabl e Immunizations Immunization Administration Dates Next Due Influenza TIV (IM) 05/19/2021 Influenza, MDCK, PF, Quadrivalent 05/13/2022 Influenza, Quadrivalent, Preservative Free 05/10 Influenza, split virus, trivalent, PF 05/11/2025 Pfizer SARS-CoV-2 Vaccination 07/06/2021, 021,12/28/2020 Social History Tobacco Use Types Packs/Day Years Used Date Smoking Tobacco: Never Assessed Comments Unknown Sex and Gender Information Value Date Recorded Sex Assigned at Not on file Legal Sex Female 3:45 PM EDT Gender Identity Not on file Sexual Orientation Not on file Plan of Treatment Health Maintenance Due Date Last Done Comments Hepatitis C Screening 1986 HIV Screening 2001 Pap Smear 12/03/2007 Cervical Cancer Screening 2016 HPV/Cotest 2016 Annual Wellness Visit 08/26/2022 08/26/2021 , 08/22/2020, 07/13/2019, Additional history exists COVID-19 Vaccine ( season) 2025 07/06/2021, 01/18/2021, 12/28/2020 DTaP,Tdap,and Td Vaccines (10 - Td or Tdap) 02/25/2028 02/24/2018, 06/08/2008, 01/06/2005, Additional history exists Meningococcal Vaccine Aged Out 11/20/2005 No waylon montserrat eligible based on patient's age to complete this topic HPV Vaccines Completed 07/10/2009, 08/0 09/2008, 12/14/2008 Influenza Vaccine Completed 05/11/2025, , 05/13/2022, Additional history exists Pneumococcal Vaccine: Pediatrics (0 to 5 Years) and At-Risk Patients (6 to 64 Years) Aged Out No longer eligible based on patient's age to complete this topic
--- OUTSIDE RECORDS SUMMARY | 2025-07-07 13:17 | XMS_ITS | Encounter Summary ---
[facility] Address [address] [place] [address] Phone Care Team Providers Care Head Refrigeration Engineer Name Role Phone Sloane Gold MD Primary Care Provider + [phone] Encounter Details Date Type Department Care Team (Late st Contact Info) Description 11/10/2017 Ancillary Orders [facility] - Maternal Medicine [address] [place] [id number] Fernando Darnell MD [address] [place] [id number] Suspected abnormality affecting management of mother, antepartum, fetus 1 Social History Tobacco Use Types Packs/Day Years [...] of this encounter Results * MFM ultrasound (12/22/2017 11:50 AM EDT) Anatomical Region Laterality Modality Body Ultrasound 12/22/2017 11:0 7 AM EDT us Fernando Darnell MD IMG OB US PROCEDURES Final Resu lt documented in this encounter Visit Diagnoses Diagnosis Suspected abnormality affecting management of mother, antepartum, fetus 1 documented in this encounter Care Teams Head Refrigeration Engineer Relationship Specialty Start Date End Date Sloane Gold MD [address] [facility] [address] [place] [address] PCP - General 01/28/17 documented as of this encounter
--- OUTSIDE RECORDS SUMMARY | 2025-07-07 13:17 | XMS_ITS | Encounter Summary ---
Author Organization [facility] Address [address] [place] [address] Phone Care Team Providers Care Remote Operations Producer Name Role Phone Sloane Gold MD Primary Care Provider + [phone] Encounter Details Date Type Department Care Team (Late st Contact Info) Description 01/19/2018 Ancillary Orders [facility] - Maternal Medicine [address] [place] [phone] Terence Garibay MD [address] [place] [address] Chronic hypertension affecting Social History Tobacco Use [...] of this encounter Results * MFM ultrasound (02/16/2018 12:14 PM EDT) Anatomical Region Laterality Modality Body Ultrasound 02/16/2018 11:5 5 AM EDT us Terence Garibay MD IMG OB US PROCEDURES E dited Result - Final documented in this encounter Visit Diagnoses Diagnosis Chronic hypertension affecting documented in this encounter Care Teams Remote Operations Producer Relationship Specialty Start Date End Date Sloane Gold MD [address] [address] PCP - General 01/28/17 documented as of this encounter
== END 2025-07-07 13:24 | disposition home or self-care (01) ==
PROVIDERS: Physician Assistant Medical; Emergency Provider Emergency Medicine; PCP Family Medicine
DX: O98.819 Other maternal infectious and parasitic diseases complicating pregnancy, unspecified trimester (principal); R10.22 Pelvic and perineal pain left side; M54.50 Low back pain, unspecified; Z3A.20 20 weeks gestation of pregnancy
CPT/HCPCS: 36415; 76815; 80053; 84702; 85025; 86900; 86901; 99284

== ENCOUNTER → 2025-07-07 11:37 | Outpatient (BNV) | payer OTHER, SELFPAY | PROVIDERS: Emergency Provider Emergency Medicine; Visit Provider Radiology Diagnostic Radiology | DX: O26.892 Other specified pregnancy related conditions, second trimester (principal); R10.9 Unspecified abdominal pain; Z3A.20 20 weeks gestation of pregnancy | CPT/HCPCS: 76815 ==